=== PATIENT | female | born 1985 | race Caucasian/White ===

== ENCOUNTER 2018-04-05 20:07 | Emergency (ER) | payer OTHER ==
[~2018-04-05] VITALS: Ht 165.1 cm; Wt 87.1 kg
[~2018-04-05 20:07] MED LIST: BIRTH CONTROL
[2018-04-05 20:33] VITALS: Ht 165.1 cm; Wt 87.1 kg
[2018-04-05 23:58] VITALS: BP 131/73
== END 2018-04-05 23:58 | disposition home or self-care (01) ==
LOC: ED 20:07
DX: O98.511 Other viral diseases complicating pregnancy, first trimester (principal); Z3A.09 9 weeks gestation of pregnancy; J45.909 Unspecified asthma, uncomplicated
CPT/HCPCS: 87804; J7620